=== PATIENT | male | born 1960 | race African-American/Black ===

== ENCOUNTER 2023-03-19 08:37 | Inpatient (IN) | payer MEDICAID, OTHER ==
[~2023-03-19] VITALS: Ht 180.3 cm; Wt 112.2 kg
[2023-03-19 09:33] LABS: BASOPHILS % 0.9 % (0.0-2.0); EOSINOPHILS % 0.1 % (0.0-5.0); HEMATOCRIT. 46.9 % (42.0-52.0); HEMOGLOBIN. 15.5 g/dL (14.0-18.0); LYMPHOCYTES % 23.4 % (20.0-50.0); MEAN CORPUSCULAR HEMOGLOBIN 27.1 pg (28.0-32.0); MEAN CORPUSCULAR VOLUME 82.2 fL (80.0-94.0); MEAN PLATELET VOLUME 8.5 fl (7.4-10.4); MONOCYTES % 5.3 % (2.0-8.0); NEUTROPHILS % 70.3 % (40.0-76.0); PLATELET 265 x1000/uL (130-400); RED BLOOD CELL COUNT 5.71 mill/uL (4.7-6.1); RED CELL DISTRIBUTION WIDTH 13.7 % (11.6-14.6)
[2023-03-19 09:41] LABS: PROTHROMBIN TIME 10.5 sec (9.6-11.0)
[2023-03-19 09:43] LABS: CHLORIDE 96 mEq/L (98-107)
[2023-03-19] MEDS ORDERED: ASPIRIN 81MG TABLET PO ONE (09:45)
[2023-03-19] MEDS ORDERED: ONDANSETRON HCL 4MG/2ML INJ IV ONE ×2 (09:45→11:30)
[2023-03-19] MEDS ORDERED: CLOPIDOGREL 75MG TABLET PO ONE (09:45)
[2023-03-19] MEDS ORDERED: LABETALOL 5MG/ML SYR 20 MG/4 ML SYRINGE IV ONE (09:45)
[2023-03-19 09:57] LABS: ETHANOL BLOOD < 10 mg/dL
[2023-03-19] MEDS ORDERED: IOHEXOL-350 100 ML BOTTLE ONE (09:59)
[2023-03-19 10:37] LABS: CLARITY URINE CLEAR (CLEAR); COLOR URINE YELLOW (YELLOW); KETONES URINE 2+ (NEGATIVE); LEUKOCYTE ESTERASE URINE NEGATIVE (NEGATIVE); NITRITE URINE NEGATIVE (NEGATIVE); OCCULT BLOOD URINE NEGATIVE (NEGATIVE); PH URINE 5.5 (4.5-8.0); PROTEIN URINE 2+ (NEGATIVE); SPECIFIC GRAVITY URINE 1.061 (1.005-1.030); UROBILINOGEN URINE 0.2 E.U./dL (0.2-1.0)
[2023-03-19] MEDS ORDERED: INSULIN REGULAR (HUMULIN R) 300UNITS/3ML VIAL SUBCUT ONE (10:45)
[2023-03-19 11:16] LABS: *AMPHETAMINES SCREEN URINE NEGATIVE (NEGATIVE); *BARBITURATES SCREEN URINE NEGATIVE (NEGATIVE); *BENZODIAZEPINES SCREEN URINE NEGATIVE (NEGATIVE); *COCAINE SCREEN URINE NEGATIVE (NEGATIVE); CANNABINOID URINE SCREEN NEGATIVE (NEGATIVE); METHADONE URINE SCREEN NEGATIVE (NEGATIVE); OPIATES URINE SCREEN NEGATIVE (NEGATIVE); PHENCYCLIDINE URINE SCREEN NEGATIVE (NEGATIVE)
[2023-03-19] MEDS ORDERED: ONDANSETRON HCL 4MG/2ML INJ IV PRN (12:00)
[2023-03-19 19:22] VITALS: BP 138/62
[2023-03-19 19:49] VITALS: BP 138/64
[2023-03-19 20:00] VITALS: BP 172/66
[2023-03-19] MEDS: ATORVASTATIN CALCIUM 20MG TABLET PO SCH (20:41)
[2023-03-19] MEDS: ENOXAPARIN 40MG/0.4ML SYR SUBCUT SCH (20:41)
[2023-03-19 22:43] LABS: HEPATITIS B SURFACE ANTIGEN NEGATIVE
[2023-03-20] VITALS: BP 172/66
[2023-03-20] MEDS: HYDRALAZINE 20MG/ML VIAL IV PRN ×4 (01:08→20:37)
[2023-03-20 03:59] VITALS: BP 162/76
[2023-03-20 05:38] LABS: BASOPHILS % 0.5 % (0.0-2.0); EOSINOPHILS % 0.3 % (0.0-5.0); HEMATOCRIT. 44.7 % (42.0-52.0); HEMOGLOBIN. 14.8 g/dL (14.0-18.0); LYMPHOCYTES % 25.2 % (20.0-50.0); MEAN CORPUSCULAR HEMOGLOBIN 26.8 pg (28.0-32.0); MEAN CORPUSCULAR VOLUME 81.1 fL (80.0-94.0); MEAN PLATELET VOLUME 8.7 fl (7.4-10.4); PLATELET 281 x1000/uL (130-400); RED BLOOD CELL COUNT 5.52 mill/uL (4.7-6.1); RED CELL DISTRIBUTION WIDTH 13.7 % (11.6-14.6)
[2023-03-20 06:08] LABS: CHLORIDE 101 mEq/L (98-107)
[2023-03-20 08:00] VITALS: BP 148/64
[2023-03-20] MEDS: ASPIRIN 81MG TABLET PO SCH (09:09)
[2023-03-20 12:00] VITALS: BP 174/82
[2023-03-20] MEDS: ENOXAPARIN 40MG/0.4ML SYR SUBCUT SCH (13:09)
[2023-03-20] MEDS: LIDOCAINE 5% PATCH TOP SCH (15:35)
[2023-03-20 16:00] VITALS: BP 152/65
[2023-03-20 20:00] VITALS: BP 160/69
[2023-03-20] MEDS ORDERED: DEXTROSE 50% WATER 50ML SYRINGE IV PRN (20:15)
[2023-03-20] MEDS: ATORVASTATIN CALCIUM 20MG TABLET PO SCH (20:36)
[2023-03-20] MEDS: BLOOD SUGAR DIAGNOSTIC STRIP TEST SCH (20:36)
[2023-03-20] MEDS: INSULIN LISPRO 100 UNITS/ML SUBCUT SCH (20:37)
[2023-03-20] MEDS: ENOXAPARIN 30MG/0.3ML SYR SUBCUT SCH (20:39)
[2023-03-20] MEDS: INSULIN GLARGINE 100 UNITS/ML SUBCUT SCH (21:57)
[2023-03-21] VITALS (7 sets, daily range): BP systolic 134–178; BP diastolic 55–86
[2023-03-21] MEDS ORDERED: MORPHINE SULFATE 2 MG/ML CPJ (NOT FOR IM USE) IV PRN ×2 (00:15→20:45)
[2023-03-21] MEDS ORDERED: HYDROCODONE/ACETAMINOPHEN 5/325MG TABLET PO PRN (00:15)
[2023-03-21] MEDS ORDERED: NALOXONE HCL 0.4MG/ML VIAL IV PRN (00:15)
[2023-03-21] MEDS: BLOOD SUGAR DIAGNOSTIC STRIP TEST SCH ×4 (06:59→21:19)
[2023-03-21] MEDS: ENOXAPARIN 30MG/0.3ML SYR SUBCUT SCH (09:28)
[2023-03-21] MEDS: ASPIRIN 81MG TABLET PO SCH (09:28)
[2023-03-21] MEDS: LIDOCAINE 5% PATCH TOP SCH (09:31)
[2023-03-21] MEDS: INSULIN LISPRO 100 UNITS/ML SUBCUT SCH ×4 (10:17→21:19)
[2023-03-21] MEDS: INSULIN GLARGINE 100 UNITS/ML SUBCUT SCH ×2 (10:18→21:18)
[2023-03-21] MEDS: SODIUM CHLORIDE 0.45% 1,000 ML IV SCH ×2 (12:51→21:19)
[2023-03-21] MEDS: ATORVASTATIN CALCIUM 20MG TABLET PO SCH (21:00)
[2023-03-21] MEDS: HYDRALAZINE 20MG/ML VIAL IV PRN (23:44)
[2023-03-22] VITALS: BP 176/80
[2023-03-22 04:00] VITALS: BP 157/56
[2023-03-22] MEDS: SODIUM CHLORIDE 0.45% 1,000 ML IV SCH ×2 (05:22→17:44)
[2023-03-22] MEDS: BLOOD SUGAR DIAGNOSTIC STRIP TEST SCH ×4 (06:31→21:05)
[2023-03-22 06:46] LABS: BASOPHILS % 0.7 % (0.0-2.0); EOSINOPHILS % 0.2 % (0.0-5.0); HEMOGLOBIN. 15.3 g/dL (14.0-18.0); LYMPHOCYTES % 24.5 % (20.0-50.0); MEAN CORPUSCULAR HEMOGLOBIN 27.4 pg (28.0-32.0); MEAN CORPUSCULAR VOLUME 80.5 fL (80.0-94.0); MEAN PLATELET VOLUME 8.6 fl (7.4-10.4); MONOCYTES % 9.7 % (2.0-8.0); NEUTROPHILS % 64.9 % (40.0-76.0); PLATELET 282 x1000/uL (130-400); RED BLOOD CELL COUNT 5.59 mill/uL (4.7-6.1); RED CELL DISTRIBUTION WIDTH 14.1 % (11.6-14.6)
[2023-03-22 06:54] LABS: CHLORIDE 102 mEq/L (98-107)
[2023-03-22 07:16] LABS: PROTHROMBIN TIME 11.2 sec (9.6-11.0)
[2023-03-22 08:00] VITALS: BP 156/82
[2023-03-22] MEDS: ASPIRIN 81MG TABLET PO SCH (09:00)
[2023-03-22] MEDS: LIDOCAINE 5% PATCH TOP SCH (09:02)
[2023-03-22] MEDS: INSULIN LISPRO 100 UNITS/ML SUBCUT SCH ×4 (09:03→21:05)
[2023-03-22] MEDS: INSULIN GLARGINE 100 UNITS/ML SUBCUT SCH ×2 (10:39→21:05)
[2023-03-22 12:00] VITALS: BP 162/73
[2023-03-22] MEDS ORDERED: PROPOFOL 200MG/20ML VIAL IV ONE (13:40)
[2023-03-22] MEDS ORDERED: MIDAZOLAM HCL 2 MG/2 ML VIAL ONE (13:40)
[2023-03-22] MEDS ORDERED: LIDOCAINE HCL 1% 10 MG/ML 10ML VIAL ONE (13:40)
[2023-03-22] MEDS: OMEPRAZOLE 20MG CAPSULE EXTENDED RELEASE PO SCH (18:15)
[2023-03-22 20:00] VITALS: BP 142/72
[2023-03-22] MEDS: ACETAMINOPHEN 325MG TABLET PO PRN (20:11)
[2023-03-22] MEDS: ATORVASTATIN CALCIUM 20MG TABLET PO SCH (21:00)
[2023-03-22] MEDS: AMLODIPINE 10MG TABLET PO SCH (21:48)
[2023-03-22] MEDS ORDERED: INSULIN GLARGINE 100 UNITS/ML SUBCUT SCH (22:00)
[2023-03-23] VITALS (7 sets, daily range): BP systolic 134–166; BP diastolic 52–86
[2023-03-23] MEDS: SODIUM CHLORIDE 0.45% 1,000 ML IV SCH ×3 (03:39→22:20)
[2023-03-23] MEDS: BLOOD SUGAR DIAGNOSTIC STRIP TEST SCH ×4 (06:22→21:23)
[2023-03-23] MEDS: OMEPRAZOLE 20MG CAPSULE EXTENDED RELEASE PO SCH (07:40)
[2023-03-23] MEDS: INSULIN LISPRO 100 UNITS/ML SUBCUT SCH ×4 (08:10→21:24)
[2023-03-23] MEDS: AMLODIPINE 10MG TABLET PO SCH (08:36)
[2023-03-23] MEDS: ASPIRIN 81MG TABLET PO SCH (08:37)
[2023-03-23] MEDS: LIDOCAINE 5% PATCH TOP SCH (09:00)
[2023-03-23] MEDS: INSULIN GLARGINE 100 UNITS/ML SUBCUT SCH ×2 (10:19→21:24)
[2023-03-23] MEDS: FLUTICASONE PROPIONATE 50MCG/SPRAY BOTTLE BOTHNSTRLS SCH (17:00)
[2023-03-23] MEDS: ATORVASTATIN CALCIUM 40MG TABLET PO SCH (21:00)
[2023-03-23] MEDS: HYDRALAZINE 20MG/ML VIAL IV PRN (21:23)
[2023-03-24] MEDS ORDERED: FLUTICASONE PROPIONATE 50MCG/SPRAY BOTTLE BOTHNSTRLS ONE (02:15)
[2023-03-24] MEDS: FLUTICASONE PROPIONATE 50MCG/SPRAY BOTTLE BOTHNSTRLS SCH ×3 (02:30→17:43)
[2023-03-24] MEDS: THROAT LOZENGES-BENZOCAINE/MENTH/CETYLPYRD CL LOZENGES MM PRN ×2 (02:30→20:19)
[2023-03-24 04:00] VITALS: BP 160/78
[2023-03-24] MEDS: BLOOD SUGAR DIAGNOSTIC STRIP TEST SCH ×4 (06:26→20:19)
[2023-03-24 08:00] VITALS: BP 140/66
[2023-03-24] MEDS: ASPIRIN 81MG TABLET PO SCH (08:56)
[2023-03-24] MEDS: AMLODIPINE 10MG TABLET PO SCH (08:56)
[2023-03-24] MEDS: OMEPRAZOLE 20MG CAPSULE EXTENDED RELEASE PO SCH (08:57)
[2023-03-24] MEDS: LIDOCAINE 5% PATCH TOP SCH (09:00)
[2023-03-24] MEDS: INSULIN LISPRO 100 UNITS/ML SUBCUT SCH ×4 (09:01→20:19)
[2023-03-24] MEDS: SODIUM CHLORIDE 0.45% 1,000 ML IV SCH ×2 (09:59→20:17)
[2023-03-24] MEDS ORDERED: INSULIN GLARGINE 100 UNITS/ML SUBCUT SCH (10:00)
[2023-03-24 12:00] VITALS: BP 138/70
[2023-03-24 16:00] VITALS: BP 152/65
[2023-03-24 20:00] VITALS: BP 163/79
[2023-03-24] MEDS: ATORVASTATIN CALCIUM 40MG TABLET PO SCH (20:17)
[2023-03-24] MEDS: INSULIN GLARGINE 100 UNITS/ML SUBCUT SCH (22:09)
[2023-03-24] MEDS ORDERED: CHLORPROMAZINE HCL 25 MG TABLET PO PRN (23:30)
[2023-03-24] MEDS: MAGNESIUM/ALUMINUM HYDROXIDE/SIMETHICONE 30ML UDC PO PRN (23:35)
[2023-03-25] VITALS: BP 168/79
[2023-03-25 04:00] VITALS: BP 158/76
[2023-03-25] MEDS: SODIUM CHLORIDE 0.45% 1,000 ML IV SCH ×2 (05:30→15:57)
[2023-03-25] MEDS: INSULIN LISPRO 100 UNITS/ML SUBCUT SCH ×4 (05:31→20:56)
[2023-03-25] MEDS: BLOOD SUGAR DIAGNOSTIC STRIP TEST SCH ×4 (05:31→20:15)
[2023-03-25] MEDS: OMEPRAZOLE 20MG CAPSULE EXTENDED RELEASE PO SCH (05:31)
[2023-03-25 08:00] VITALS: BP 139/79
[2023-03-25] MEDS: ASPIRIN 81MG TABLET PO SCH (09:04)
[2023-03-25] MEDS: AMLODIPINE 10MG TABLET PO SCH (09:05)
[2023-03-25] MEDS: LIDOCAINE 5% PATCH TOP SCH (09:05)
[2023-03-25] MEDS: INSULIN GLARGINE 100 UNITS/ML SUBCUT SCH ×2 (09:19→20:56)
[2023-03-25] MEDS: FLUTICASONE PROPIONATE 50MCG/SPRAY BOTTLE BOTHNSTRLS SCH ×2 (09:20→16:37)
[2023-03-25 12:00] VITALS: BP 144/85
[2023-03-25] MEDS ORDERED: SENNOSIDES 8.6MG TABLET PO PRN (12:00)
[2023-03-25] MEDS ORDERED: BISACODYL 10MG SUPP PR PRN (12:00)
[2023-03-25 12:37] LABS: BASOPHILS % 0.8 % (0.0-2.0); EOSINOPHILS % 0.7 % (0.0-5.0); HEMOGLOBIN. 13.3 g/dL (14.0-18.0); LYMPHOCYTES % 23.7 % (20.0-50.0); MEAN CORPUSCULAR HEMOGLOBIN 26.9 pg (28.0-32.0); MEAN CORPUSCULAR VOLUME 80.7 fL (80.0-94.0); MEAN PLATELET VOLUME 8.6 fl (7.4-10.4); MONOCYTES % 8.9 % (2.0-8.0); NEUTROPHILS % 65.9 % (40.0-76.0); PLATELET 272 x1000/uL (130-400); RED BLOOD CELL COUNT 4.96 mill/uL (4.7-6.1); RED CELL DISTRIBUTION WIDTH 13.5 % (11.6-14.6)
[2023-03-25 12:47] LABS: CHLORIDE 106 mEq/L (98-107)
[2023-03-25] MEDS ORDERED: ZOLPIDEM TARTRATE 5MG TABLET PO PRN (13:15)
[2023-03-25] MEDS: BACLOFEN 10MG TABLET PO SCH ×2 (13:48→20:54)
[2023-03-25] MEDS: MAGNESIUM/ALUMINUM HYDROXIDE/SIMETHICONE 30ML UDC PO PRN ×2 (16:08→23:38)
[2023-03-25] MEDS: DOCUSATE SODIUM 100MG CAPSULE PO SCH (17:00)
[2023-03-25 20:00] VITALS: BP 156/73
[2023-03-25 20:06] LABS: CLARITY URINE CLEAR (CLEAR); COLOR URINE YELLOW (YELLOW); KETONES URINE 1+ (NEGATIVE); LEUKOCYTE ESTERASE URINE NEGATIVE (NEGATIVE); NITRITE URINE NEGATIVE (NEGATIVE); OCCULT BLOOD URINE NEGATIVE (NEGATIVE); PH URINE 5.5 (4.5-8.0); PROTEIN URINE NEGATIVE (NEGATIVE); SPECIFIC GRAVITY URINE 1.016 (1.005-1.030); UROBILINOGEN URINE 0.2 E.U./dL (0.2-1.0)
[2023-03-25] MEDS: ATORVASTATIN CALCIUM 40MG TABLET PO SCH (20:54)
[2023-03-26] VITALS (7 sets, daily range): BP systolic 113–176; BP diastolic 56–83
[2023-03-26] MEDS: HYDRALAZINE 20MG/ML VIAL IV PRN (00:43)
[2023-03-26] MEDS: SODIUM CHLORIDE 0.45% 1,000 ML IV SCH ×3 (01:48→22:17)
[2023-03-26] MEDS: BLOOD SUGAR DIAGNOSTIC STRIP TEST SCH ×4 (05:15→21:00)
[2023-03-26] MEDS: BACLOFEN 10MG TABLET PO SCH ×4 (05:24→21:25)
[2023-03-26 06:17] LABS: EOSINOPHILS % 1.3 % (0.0-5.0); HEMOGLOBIN. 13.3 g/dL (14.0-18.0); LYMPHOCYTES % 31.7 % (20.0-50.0); MEAN CORPUSCULAR HEMOGLOBIN 26.9 pg (28.0-32.0); MEAN CORPUSCULAR VOLUME 80.6 fL (80.0-94.0); MONOCYTES % 10.2 % (2.0-8.0); NEUTROPHILS % 55.8 % (40.0-76.0); PLATELET 269 x1000/uL (130-400); RED BLOOD CELL COUNT 4.96 mill/uL (4.7-6.1); RED CELL DISTRIBUTION WIDTH 13.6 % (11.6-14.6)
[2023-03-26 08:26] LABS: CHLORIDE 104 mEq/L (98-107)
[2023-03-26] MEDS: ASPIRIN 81MG TABLET PO SCH (08:42)
[2023-03-26] MEDS: AMLODIPINE 10MG TABLET PO SCH (08:44)
[2023-03-26] MEDS: DOCUSATE SODIUM 100MG CAPSULE PO SCH ×2 (08:44→17:31)
[2023-03-26] MEDS: FLUTICASONE PROPIONATE 50MCG/SPRAY BOTTLE BOTHNSTRLS SCH (08:45)
[2023-03-26] MEDS: INSULIN LISPRO 100 UNITS/ML SUBCUT SCH ×4 (08:56→21:28)
[2023-03-26] MEDS: LIDOCAINE 5% PATCH TOP SCH (09:00)
[2023-03-26] MEDS: OMEPRAZOLE 20MG CAPSULE EXTENDED RELEASE PO SCH (09:01)
[2023-03-26] MEDS ORDERED: CHLORPROMAZINE HCL 10 MG TABLET PO SCH (10:00)
[2023-03-26] MEDS: ACETAMINOPHEN 325MG TABLET PO PRN ×2 (12:38→14:37)
[2023-03-26] MEDS: INSULIN GLARGINE 100 UNITS/ML SUBCUT SCH ×2 (12:42→21:29)
[2023-03-26] MEDS ORDERED: METOCLOPRAMIDE HCL 10MG/2ML VIAL IV NR (13:45)
[2023-03-26] MEDS: HYDRALAZINE HCL 50MG TABLET PO SCH ×2 (14:39→21:25)
[2023-03-26] MEDS: ATORVASTATIN CALCIUM 40MG TABLET PO SCH (21:25)
[2023-03-27] VITALS: BP 132/62
[2023-03-27 04:00] VITALS: BP 153/68
[2023-03-27] MEDS: BACLOFEN 10MG TABLET PO SCH ×3 (05:59→22:46)
[2023-03-27] MEDS: HYDRALAZINE HCL 50MG TABLET PO SCH ×3 (06:00→22:46)
[2023-03-27 06:01] LABS: BASOPHILS % 1.1 % (0.0-2.0); EOSINOPHILS % 1.2 % (0.0-5.0); HEMOGLOBIN. 12.8 g/dL (14.0-18.0); LYMPHOCYTES % 31.3 % (20.0-50.0); MEAN CORPUSCULAR HEMOGLOBIN 26.6 pg (28.0-32.0); MEAN PLATELET VOLUME 8.8 fl (7.4-10.4); MONOCYTES % 9.8 % (2.0-8.0); NEUTROPHILS % 56.6 % (40.0-76.0); PLATELET 273 x1000/uL (130-400); RED BLOOD CELL COUNT 4.81 mill/uL (4.7-6.1); RED CELL DISTRIBUTION WIDTH 13.7 % (11.6-14.6)
[2023-03-27] MEDS: BLOOD SUGAR DIAGNOSTIC STRIP TEST SCH ×4 (06:26→21:00)
[2023-03-27 06:45] LABS: CHLORIDE 105 mEq/L (98-107)
[2023-03-27] MEDS: SODIUM CHLORIDE 0.45% 1,000 ML IV SCH ×2 (07:59→16:54)
[2023-03-27 08:00] VITALS: BP 134/58
[2023-03-27] MEDS: AMLODIPINE 10MG TABLET PO SCH (08:13)
[2023-03-27] MEDS: DOCUSATE SODIUM 100MG CAPSULE PO SCH ×2 (08:13→16:54)
[2023-03-27] MEDS: INSULIN LISPRO 100 UNITS/ML SUBCUT SCH ×4 (08:14→21:00)
[2023-03-27] MEDS: OMEPRAZOLE 20MG CAPSULE EXTENDED RELEASE PO SCH (08:14)
[2023-03-27] MEDS: LIDOCAINE 5% PATCH TOP SCH ×2 (08:14→08:30)
[2023-03-27] MEDS: ASPIRIN 81MG TABLET PO SCH (08:14)
[2023-03-27] MEDS: INSULIN GLARGINE 100 UNITS/ML SUBCUT SCH ×2 (09:37→22:47)
[2023-03-27 12:00] VITALS: BP 156/60
[2023-03-27 16:17] VITALS: BP 159/66
[2023-03-27 20:00] VITALS: BP 155/74
[2023-03-27] MEDS: ATORVASTATIN CALCIUM 40MG TABLET PO SCH (22:45)
[2023-03-28] VITALS: BP 152/64
[2023-03-28] MEDS: SODIUM CHLORIDE 0.45% 1,000 ML IV SCH ×3 (03:30→23:30)
[2023-03-28 04:00] VITALS: BP 144/70
[2023-03-28] MEDS: HYDRALAZINE HCL 50MG TABLET PO SCH ×3 (06:49→21:30)
[2023-03-28] MEDS: BACLOFEN 10MG TABLET PO SCH ×3 (06:50→21:31)
[2023-03-28] MEDS: BLOOD SUGAR DIAGNOSTIC STRIP TEST SCH ×4 (07:40→21:00)
[2023-03-28 07:57] LABS: EOSINOPHILS % 0.8 % (0.0-5.0); HEMATOCRIT. 41.9 % (42.0-52.0); HEMOGLOBIN. 14.2 g/dL (14.0-18.0); LYMPHOCYTES % 40.4 % (20.0-50.0); MEAN CORPUSCULAR HEMOGLOBIN 27.6 pg (28.0-32.0); MEAN CORPUSCULAR VOLUME 81.3 fL (80.0-94.0); MEAN PLATELET VOLUME 9.2 fl (7.4-10.4); MONOCYTES % 7.9 % (2.0-8.0); NEUTROPHILS % 49.9 % (40.0-76.0); PLATELET 306 x1000/uL (130-400); RED BLOOD CELL COUNT 5.15 mill/uL (4.7-6.1); RED CELL DISTRIBUTION WIDTH 13.8 % (11.6-14.6)
[2023-03-28 08:00] VITALS: BP 139/67
[2023-03-28] MEDS: INSULIN LISPRO 100 UNITS/ML SUBCUT SCH ×4 (08:10→21:00)
[2023-03-28] MEDS: ASPIRIN 81MG TABLET PO SCH (08:44)
[2023-03-28] MEDS: AMLODIPINE 10MG TABLET PO SCH (08:45)
[2023-03-28] MEDS: OMEPRAZOLE 20MG CAPSULE EXTENDED RELEASE PO SCH ×2 (08:45→17:05)
[2023-03-28 08:47] LABS: CHLORIDE 104 mEq/L (98-107)
[2023-03-28] MEDS: DOCUSATE SODIUM 100MG CAPSULE PO SCH ×2 (08:57→17:05)
[2023-03-28] MEDS: LIDOCAINE 5% PATCH TOP SCH (08:57)
[2023-03-28] MEDS: INSULIN GLARGINE 100 UNITS/ML SUBCUT SCH ×2 (10:27→21:29)
[2023-03-28 12:00] VITALS: BP 161/73
[2023-03-28] MEDS ORDERED: POTASSIUM CHLORIDE 20MEQ/PACKET PO NR (13:00)
[2023-03-28 16:00] VITALS: BP 114/54
[2023-03-28] MEDS: AMOXICILLIN 500 MG CAPSULE PO SCH (17:05)
[2023-03-28 20:00] VITALS: BP 137/70
[2023-03-28] MEDS: ATORVASTATIN CALCIUM 40MG TABLET PO SCH (21:31)
[2023-03-28] MEDS: CLARITHROMYCIN 500MG TABLET PO SCH (21:31)
[2023-03-29] VITALS: BP 140/61
[2023-03-29 04:00] VITALS: BP 143/68
[2023-03-29 06:18] LABS: BASOPHILS % 0.9 % (0.0-2.0); HEMATOCRIT. 43.5 % (42.0-52.0); HEMOGLOBIN. 14.3 g/dL (14.0-18.0); LYMPHOCYTES % 34.1 % (20.0-50.0); MEAN CORPUSCULAR HEMOGLOBIN 26.6 pg (28.0-32.0); MEAN CORPUSCULAR VOLUME 80.8 fL (80.0-94.0); MEAN PLATELET VOLUME 8.8 fl (7.4-10.4); MONOCYTES % 8.8 % (2.0-8.0); NEUTROPHILS % 55.2 % (40.0-76.0); PLATELET 317 x1000/uL (130-400); RED BLOOD CELL COUNT 5.38 mill/uL (4.7-6.1)
[2023-03-29] MEDS: HYDRALAZINE HCL 50MG TABLET PO SCH ×3 (06:22→21:33)
[2023-03-29] MEDS: BACLOFEN 10MG TABLET PO SCH ×3 (06:22→21:33)
[2023-03-29] MEDS: BLOOD SUGAR DIAGNOSTIC STRIP TEST SCH ×4 (06:50→21:00)
[2023-03-29] MEDS: INSULIN LISPRO 100 UNITS/ML SUBCUT SCH ×4 (08:10→21:00)
[2023-03-29 08:34] VITALS: BP 137/66
[2023-03-29] MEDS: AMOXICILLIN 500 MG CAPSULE PO SCH ×2 (08:56→17:18)
[2023-03-29] MEDS: OMEPRAZOLE 20MG CAPSULE EXTENDED RELEASE PO SCH ×2 (08:56→17:18)
[2023-03-29] MEDS: DOCUSATE SODIUM 100MG CAPSULE PO SCH ×2 (08:56→17:00)
[2023-03-29] MEDS: ASPIRIN 81MG TABLET PO SCH (08:57)
[2023-03-29] MEDS: CLOPIDOGREL 75MG TABLET PO SCH (08:57)
[2023-03-29] MEDS: AMLODIPINE 10MG TABLET PO SCH (08:57)
[2023-03-29] MEDS: LIDOCAINE 5% PATCH TOP SCH (09:00)
[2023-03-29] MEDS: CLARITHROMYCIN 500MG TABLET PO SCH ×2 (09:10→21:33)
[2023-03-29] MEDS: SODIUM CHLORIDE 0.45% 1,000 ML IV SCH ×2 (09:30→19:30)
[2023-03-29] MEDS: INSULIN GLARGINE 100 UNITS/ML SUBCUT SCH ×2 (10:27→21:36)
[2023-03-29 12:20] VITALS: BP 140/70
[2023-03-29] MEDS ORDERED: CLOP-31 PO (12:52)
[2023-03-29] MEDS ORDERED: ASPI-1160 PO (12:52)
[2023-03-29] MEDS ORDERED: LIP40 PO (12:52)
[2023-03-29] MEDS ORDERED: OMEP20CA14 PO (12:52)
[2023-03-29] MEDS ORDERED: AMLO10TA80 PO (12:52)
[2023-03-29] MEDS ORDERED: LANTUSUD SUBCUT (12:52)
[2023-03-29] MEDS ORDERED: BACL-141 PO (12:52)
[2023-03-29] MEDS ORDERED: HYDR-4135 PO (12:52)
[2023-03-29] MEDS ORDERED: CLAR-44 PO (13:49)
[2023-03-29] MEDS ORDERED: AMOX-494 PO (13:49)
[2023-03-29 15:51] VITALS: BP 130/75
[2023-03-29 20:00] VITALS: BP 148/66
[2023-03-29] MEDS: ATORVASTATIN CALCIUM 40MG TABLET PO SCH (21:34)
[2023-03-30] VITALS: BP 148/66
[2023-03-30 04:00] VITALS: BP 130/69
[2023-03-30] MEDS: SODIUM CHLORIDE 0.45% 1,000 ML IV SCH ×2 (05:08→13:23)
[2023-03-30] MEDS: HYDRALAZINE HCL 50MG TABLET PO SCH ×2 (06:23→13:23)
[2023-03-30] MEDS: BACLOFEN 10MG TABLET PO SCH ×2 (06:23→13:26)
[2023-03-30] MEDS: BLOOD SUGAR DIAGNOSTIC STRIP TEST SCH ×2 (07:43→12:17)
[2023-03-30] MEDS: INSULIN LISPRO 100 UNITS/ML SUBCUT SCH ×2 (07:43→12:18)
[2023-03-30 08:19] VITALS: BP 127/52
[2023-03-30] MEDS: CLOPIDOGREL 75MG TABLET PO SCH (08:35)
[2023-03-30] MEDS: CLARITHROMYCIN 500MG TABLET PO SCH (08:35)
[2023-03-30] MEDS: AMLODIPINE 10MG TABLET PO SCH (08:35)
[2023-03-30] MEDS: ASPIRIN 81MG TABLET PO SCH (08:35)
[2023-03-30] MEDS: DOCUSATE SODIUM 100MG CAPSULE PO SCH (08:35)
[2023-03-30] MEDS: LIDOCAINE 5% PATCH TOP SCH (08:36)
[2023-03-30] MEDS: AMOXICILLIN 500 MG CAPSULE PO SCH (08:39)
[2023-03-30] MEDS: OMEPRAZOLE 20MG CAPSULE EXTENDED RELEASE PO SCH (08:39)
[2023-03-30] MEDS: INSULIN GLARGINE 100 UNITS/ML SUBCUT SCH (10:59)
[2023-03-30 12:00] VITALS: BP 103/60
[2023-03-30 14:25] VITALS: BP 103/60
== END 2023-03-30 15:45 | disposition home health service (06) | DRG 45 ==
LOC: ER 08:37 → EDBEDREQSVC 10:46 → EDBEDREQTM 10:46 → EDBEDREQ 10:46 → EDBEDREQTM 11:18 → 7WST 11:18 → EDBEDREQSVC 11:18
PROVIDERS: ADMIT Internal Medicine; ATTEND Internal Medicine
PROC: 0DB68ZX Excision of Stomach, Via Natural or Artificial Opening Endoscopic, Diagnostic (ICD-10-PCS; principal; 2023-03-22)
DX: I63.9 Cerebral infarction, unspecified (principal); E87.1 Hypo-osmolality and hyponatremia; K29.70 Gastritis, unspecified, without bleeding; E11.65 Type 2 diabetes mellitus with hyperglycemia; I16.1 Hypertensive emergency; Z20.822 Contact with and (suspected) exposure to COVID-19; E78.00 Pure hypercholesterolemia, unspecified; E78.1 Pure hyperglyceridemia; R13.10 Dysphagia, unspecified; K26.9 Duodenal ulcer, unspecified as acute or chronic, without hemorrhage or perforation; R26.9 Unspecified abnormalities of gait and mobility; Z79.82 Long term (current) use of aspirin
CPT/HCPCS: 36415; 70496; 70498; 70551; 71045; 74230; 80048; 80053; 80061; 80305; 80320; 81003; 82962; 83036; 84145; 84484; 85025; 86803; 87340; 87426; 88305; 92610; 92611; 93005; 93970; 97110; 97112; 97116; 97162; 97166; 97530; 97535; 99291; C1893; J0360; J1650; J1815; J2250; J2270; J2405; J2704; J2765; J3490; Q0161; Q9967; G0480

== ENCOUNTER 2023-08-16 12:24 | Emergency (ER) | payer MEDICAID, OTHER ==
[~2023-08-16] VITALS: Ht 180.3 cm; Wt 99.0 kg
[~2023-08-16 12:24] MED LIST: AMLO10TA80 PO; AMOX-494 PO; ASPI-1160 PO; BACL-141 PO; CLAR-44 PO; CLOP-31 PO; HYDR-4135 PO; LANTUSUD SUBCUT; LIP40 PO; OMEP20CA14 PO
[2023-08-16 12:36] VITALS: O2SAT 100
[2023-08-16] MEDS ORDERED: CIPHCO EACH EAR (13:31)
[2023-08-16 15:47] VITALS: BP 170/93; PULSE 78; RESP 18; TEMP 98.7
== END 2023-08-16 16:00 | disposition home or self-care (01) ==
LOC: ER 12:24
DX: H60.501 Unspecified acute noninfective otitis externa, right ear (principal); R51.9 Headache, unspecified
CPT/HCPCS: 99284